=== PATIENT | male | born 1985 | race Caucasian/White ===

== ENCOUNTER 2016-09-20 16:03 | Emergency (ER) | payer OTHER ==
[2016-09-20] MEDS ORDERED: Acetaminophen TAB* 325 MG PO ONE (18:24)
[2016-09-20] MEDS ORDERED: NS 0.9% 1000 ML* 1,000 ML IV ONE (18:24)
--- NOTE | 2016-09-20 19:09 | RAD ---
INDICATION: Fever COMPARISON: None TECHNIQUE: PA and lateral dual-energy views were obtained. FINDINGS: Bones/Soft Tissues: There are no acute bony findings. Cardiomediastinal: The cardiomediastinal silhouette is normal. Lungs: There are no infiltrates. Pleura: There are no pleural effusions. Other: None IMPRESSION: NO ACTIVE DISEASE.
[2016-09-20 19:28] VITALS: BP 135/52
[2016-09-20 21:18] LABS: Anion Gap 15 mmol/L (2-11); EGFR African American 128.3 (>60); EGFR Non-African American 99.8 (>60); Manual Entry Verification MD; POC CO2 Carbon Dioxide 24 mmol/L (24-29); POC Chloride 94 mmol/L (98-109); POC Glucose 105 mg/dL (70-105); POC Potassium 3.4 mmol/L (3.5-4.9); POC Sodium 133 mmol/L (138-146)
[2016-09-20 21:19] LABS: Hematocrit 45 % (42-52); Hemoglobin 15.8 g/dl (14.0-18.0); Mean Corpuscular HGB Conc 35 g/dl (31-36); Mean Corpuscular Hemoglobin 31 pg (27-31); Mean Corpuscular Volume 89 fL (80-94); Mean Platelet Volume 10 um3 (7.4-10.4); Red Blood Count 5.06 10^6/ul (4.0-5.4); Red Cell Distribution Width 13 % (10.5-15); White Blood Count 3.1 10^3/ul (3.5-10.8)
[2016-09-20 21:20] LABS: Urine Bacteria Absent (Absent); Urine Bilirubin Negative (Negative); Urine Glucose Negative (Negative); Urine Nitrite Negative (Negative)
[2016-09-20 21:21] LABS: Add Diff/Slide Review? Manual Diff Added; Comments Flag Yes
[2016-09-20 21:51] LABS: Eosinophils % 3 % (0-6); Immature Granulocytes 21 % (0-9); Neutrophil % 40 % (38-83); Reactive Lymph % 9 % (0-6)
[2016-09-20 21:53] LABS: RBC Morphology Normal (Normal)
[2016-09-20 21:54] LABS: Add Path Review? YES
[2016-09-20 21:56] LABS: Mono Internal Control QC Line Present
[2016-09-20 22:05] LABS: Albumin 3.8 g/dL (3.2-5.2); BUN/Creatinine Ratio 9.9 (8-20); C Reactive Protein 53.87 mg/L (< 5.00); Calcium 8.9 mg/dL (8.6-10.3); EGFR African American 126.7 (>60); EGFR Non-African American 98.5 (>60); Globulin 2.5 g/dL (2-4); Potassium 3.5 mmol/L (3.5-5.0); Total Protein 6.3 g/dL (6.4-8.9)
[2016-09-20] MEDS ORDERED: DOXYcycline CAP(*) 100 MG PO ONE ×2 (22:17→22:46)
--- NOTE | 2016-09-21 13:17 | ED ---
I, Oh,Sonaveed, scribed for Randy Kennedy MD on 09/20/16 at 1824 . HPI Febrile Illness - HPI Summary HPI Summary: THis 30 y/o male presents to ED for fever since 3 days ago. Temperature of 103 F is noted at triage. Positive raised, non-itchy/-painful rash since yesterday, dizziness, frontal RUCKER, and throat pain. Pt is unsure if he is UTD with meningitis vaccination. Mother present at bedside also reports that he has gotten all vaccinations as a child. - History of Current Complaint Chief Complaint: EDFever Time Seen by Provider: 09/20/16 17:48 Hx Obtained From: Patient Onset/Duration: Started Days Ago, Atraumatic, Still Present Timing: Constant Pain Intensity: 2 Pain Scale Used: 0-10 Numeric Alleviating Factors: OTC Medicine Associated Signs and Symptoms: Dizziness, Headache, Rash, Sore Throat - Allergy/Home Medications Allergies/Adverse Reactions: Allergies Allergy/AdvReac Type Severity Reaction Status Date / Time No Known Allergies Allergy Verified 09/20/16 22:02 PMH/Surg Hx/FS Hx/Imm Hx Cardiovascular History: Denies: Hx Myocardial Infarction Infectious Disease History: Denies: Traveled Outside the [place] in Last 30 Days - Family History Known Family History: Negative: Hypertension - Social History Alcohol Use: None Hx Substance Use: No Substance Use Type: Reports: None Hx Tobacco Use: No Smoking Status (MU): Never Smoked Tobacco Review of Systems Positive: Fever Positive: Sore Throat Positive: Rash All Other Systems Reviewed And Are Negative: Yes Physical Exam Triage Information Reviewed: Yes Vital Signs On Initial Exam: Initial Vitals Temp Pulse Resp BP Pulse Ox 103.0 F 123 18 110/67 96 09/20/16 16:43 09/20/16 16:43 09/20/16 16:43 09/20/16 16:43 09/20/16 16:43 Vital Signs Reviewed: Yes Appearance: Positive: Well-Appearing, No Pain Distress Skin: Positive: Other - maculopapular rash diffuse across trunk Head/Face: Positive: Normal Head/Face Inspection Eyes: Positive: Normal ENT: Positive: Pharyngeal erythema Neck: Positive: Supple, Enlarged Nodes @ - mild anterior cervical lymphadenopathy Respiratory/Lung Sounds: Positive: Clear to Auscultation, Breath Sounds Present Cardiovascular: Positive: Tachycardia Abdomen Description: Positive: Nontender, Soft Musculoskeletal: Positive: Normal Neurological: Positive: Normal Psychiatric: Positive: Affect/Mood Appropriate AVPU Assessment: Alert Diagnostics - Vital Signs Vital Signs Temp Pulse Resp BP Pulse Ox 09/20/16 16:43 103.0 F 123 18 110/67 96 - Laboratory Lab Results: Lab Results 09/20/16 09/20/16 09/20/16 Range/Units 21:00 21:00 21:00 WBC 3.1 L (3.5-10.8) 10^3/ul RBC 5.06 (4.0-5.4) 10^6/ul Hgb 15.8 (14.0-18.0) g/dl Hct 45 (42-52) % MCV 89 (80-94) fL MCH 31 (27-31) pg MCHC 35 (31-36) g/dl RDW 13 (10.5-15) % Plt Count 65 L (150-450) 10^3/ul MPV 10 (7.4-10.4) um3 Immature Gran % (Auto) 21 H (0-9) % Absolute Neuts (auto) 1.9 (1.5-7.7) 10^3/ul Absolute Lymphs (auto) 1.1 (1.0-4.8) 10^3/ul Absolute Monos (auto) 0.1 (0-0.8) 10^3/ul Absolute Eos (auto) 0.1 (0-0.6) 10^3/ul Absolute Basos (auto) Not Reportable Absolute Nucleated RBC Not Reportable Neutrophils % 40 (38-83) % Band Neutrophils % 21 H (0-8) % Lymphocytes % 25 (25-47) % Reactive Lymphs % 9 H (0-6) % Monocytes % 2 (0-13) % Eosinophils % 3 (0-6) % Normal RBC Morphology Normal (Normal) Hem Pathologist Commnt POC Venous Sodium (138-146) mmol/L Sodium 132 L (133-145) mmol/L POC Venous Potassium (3.5-4.9) mmol/L Potassium 3.5 (3.5-5.0) mmol/L POC Venous Chloride (98-109) mmol/L Chloride 97 L (101-111) mmol/L Carbon Dioxide 25 (22-32) mmol/L POC Venous Total CO2 (24-29) mmol/L Anion Gap 10 (2-11) mmol/L BUN 9 (6-24) mg/dL POC Venous BUN (8-26) mg/dL Creatinine 0.91 (0.67-1.17) mg/dL POC Venous Creatinine (0.6-1.3) mg/dL Est GFR ( Amer) 126.7 (>60) Est GFR (Non-Af Amer) 98.5 (>60) BUN/Creatinine Ratio 9.9 (8-20) Glucose 102 H (70-100) mg/dL POC Venous Glucose (70-105) mg/dL Lactic Acid (0.5-2.0) mmol/L Calcium 8.9 (8.6-10.3) mg/dL Total Bilirubin 3.00 H (0.2-1.0) mg/dL AST 150 H (13-39) U/L ALT 93 H (7-52) U/L Alkaline Phosphatase 103 (34-104) U/L C-Reactive Protein 53.87 H (< 5.00) mg/L Total Protein 6.3 L (6.4-8.9) g/dL Albumin 3.8 (3.2-5.2) g/dL Globulin 2.5 (2-4) g/dL Albumin/Globulin Ratio 1.5 (1-3) Urine Color Yellow Urine Appearance Clear Urine pH 6.0 (5-9) Ur Specific [place] 1.005 L (1.010-1.030) Urine Protein Negative (Negative) Urine Ketones Trace H (Negative) Urine Blood 2+ H (Negative) Urine Nitrate Negative (Negative) Urine Bilirubin Negative (Negative) Urine Urobilinogen Positive H (Negative) Ur Leukocyte Esterase Negative (Negative) Urine WBC (Auto) Trace(0-5/hpf) (Absent) Urine RBC (Auto) 2+(6-10/hpf) H (Absent) Urine Bacteria Absent (Absent) Urine Glucose Negative (Negative) Monoscreen Negative (Negative) Group A Strep Rapid (Negative) 09/20/16 09/20/16 09/20/16 Range/Units 21:00 21:00 21:12 WBC (3.5-10.8) 10^3/ul RBC (4.0-5.4) 10^6/ul Hgb (14.0-18.0) g/dl Hct (42-52) % MCV (80-94) fL MCH (27-31) pg MCHC (31-36) g/dl RDW (10.5-15) % Plt Count (150-450) 10^3/ul MPV (7.4-10.4) um3 Immature Gran % (Auto) (0-9) % Absolute Neuts (auto) (1.5-7.7) 10^3/ul Absolute Lymphs (auto) (1.0-4.8) 10^3/ul Absolute Monos (auto) (0-0.8) 10^3/ul Absolute Eos (auto) (0-0.6) 10^3/ul Absolute Basos (auto) Absolute Nucleated RBC Neutrophils % (38-83) % Band Neutrophils % (0-8) % Lymphocytes % (25-47) % Reactive Lymphs % (0-6) % Monocytes % (0-13) % Eosinophils % (0-6) % Normal RBC Morphology (Normal) Hem Pathologist Commnt POC Venous Sodium 133 L (138-146) mmol/L Sodium (133-145) mmol/L POC Venous Potassium 3.4 L (3.5-4.9) mmol/L Potassium (3.5-5.0) mmol/L POC Venous Chloride 94 L (98-109) mmol/L Chloride (101-111) mmol/L Carbon Dioxide (22-32) mmol/L POC Venous Total CO2 24 (24-29) mmol/L Anion Gap 15 H (2-11) mmol/L BUN (6-24) mg/dL POC Venous BUN 8 (8-26) mg/dL Creatinine (0.67-1.17) mg/dL POC Venous Creatinine 0.90 (0.6-1.3) mg/dL Est GFR ( Amer) 128.3 (>60) Est GFR (Non-Af Amer) 99.8 (>60) BUN/Creatinine Ratio 8.9 (8-20) Glucose (70-100) mg/dL POC Venous Glucose 105 (70-105) mg/dL Lactic Acid 1.1 (0.5-2.0) mmol/L Calcium (8.6-10.3) mg/dL Total Bilirubin (0.2-1.0) mg/dL AST (13-39) U/L ALT (7-52) U/L Alkaline Phosphatase (34-104) U/L C-Reactive Protein (< 5.00) mg/L Total Protein (6.4-8.9) g/dL Albumin (3.2-5.2) g/dL Globulin (2-4) g/dL Albumin/Globulin Ratio (1-3) Urine Color Urine Appearance Urine pH (5-9) Ur Specific R[place]y (1.010-1.030) Urine Protein (Negative) Urine Ketones (Negative) Urine Blood (Negative) Urine Nitrate (Negative) Urine Bilirubin (Negative) Urine Urobilinogen (Negative) Ur Leukocyte Esterase (Negative) Urine WBC (Auto) (Absent) Urine RBC (Auto) (Absent) Urine Bacteria (Absent) Urine Glucose (Negative) Monoscreen (Negative) Group A Strep Rapid Negative (Negative) Result Diagrams: 09/20/16 21:00 09/20/16 21:00 Lab Statement: Any lab studies that have been ordered have been reviewed, and results considered in the medical decision making process. - Radiology CXR Xray Interpretation: No Acute Changes Radiology Interpretation Completed By: Radiologist Re-Evaluation - Re-Evaluation First Eval Re-Evaluation Time: 22:02 Second Eval Re-Evaluation Time: 22:46 Comment: Pt denies any known tick bite, but does admit that he spends a lot of time outdoor. Course/Dx - Course Course Of Treatment: Mr. Rowley has had fevers, myalgias and arthralgias, and headaches for about 4-5 days. He developed a sore throat yesterday and a rash was noticed today. He came in febrile at 103. He felt a lot better when his fever was down and his headache was gone. He had a maculopapular rash (not petechial at that time) and no target lesion. His post. pharynx was erythematous with mild ant. ceervicle lymphadenopathy. His labs revealed a leukopenia, thrombocytopenia and elevated transaminases. Also a mild hyponatremia. This may be all viral but could be tick-borne so I treated with doxycycline. There is a small possibility of RMSF and I recommended he get close F/U. - Diagnoses Provider Diagnoses: Tick-borne disease - Provider Notifications Discussed Care Of Patient With: Cheng Schroeder Time Discussed With Above Provider: 22:38 Discharge - Discharge Plan Condition: Stable Disposition: HOME Prescriptions: Doxycycline (Monohydrate) [Doxycycline Monohydrate] 100 mg PO BID #28 cap Patient Education Materials: Doxycycline (By mouth), [place] Spotted Fever (ED) Referrals: Elroy SHANNON,Dimitrios Gill [Primary Care Provider] - 2 Days The documentation as recorded by the Karsten levi Soohyun accurately reflects the service I personally performed and the decisions made by me, Randy Kennedy MD.
== END 2016-09-20 23:10 | disposition home or self-care (01) ==
LOC: ED 16:03
DX: A93.8 Other specified arthropod-borne viral fevers (principal); D72.819 Decreased white blood cell count, unspecified; D69.6 Thrombocytopenia, unspecified; R74.0 Nonspecific elevation of levels of transaminase and lactic acid dehydrogenase [LDH]; E87.1 Hypo-osmolality and hyponatremia
CPT/HCPCS: 36415; 71020; 80048; 80053; 81003; 81015; 83605; 85025; 85060; 86140; 86308; 87476; 87651; 87798; 99285; A9270-GY